=== PATIENT | female | born 2000 | race American Indian/Alaskan Native ===

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

== ENCOUNTER 2020-07-13 23:49 | Inpatient (IN) | payer OTHER ==
[2020-07-14] MEDS ORDERED: Nalbuphine 10 MG/1 ML Vial IVPUSH PRN (01:07)
[2020-07-14] MEDS ORDERED: Misoprostol 25 MCG (1/4 of 100 MCG) Tab VAG PRN (01:07)
[2020-07-14] MEDS ORDERED: Butorphanol 1 MG/ML SDV IVPUSH PRN (01:07)
[2020-07-14] MEDS ORDERED: Carboprost Tromethamine 250 MCG/1 ML Amp IM PRN (01:07)
[2020-07-14] MEDS ORDERED: Tranexamic Acid 1,000 MG in Sodium Chloride 0.9% 100 ML IV PRN (01:07)
[2020-07-14] MEDS ORDERED: Lidocaine 1% 50 ML MDV INJECT PRN (01:07)
[2020-07-14] MEDS ORDERED: Misoprostol 200 MCG Tab PO PRN (01:07)
[2020-07-14] MEDS ORDERED: Sodium Chloride 0.9% 10 ML SDV IV PRN (01:07)
[2020-07-14] MEDS ORDERED: Ondansetron 4 MG/2 ML SDV IVPUSH PRN (01:07)
[2020-07-14] MEDS ORDERED: Terbutaline 1 MG/ML SDV SUBCUT PRN (01:07)
[2020-07-14] MEDS ORDERED: Sodium Chloride 0.9% 2.5 ML Syringe FLUSH PRN (01:07)
[2020-07-14] MEDS ORDERED: Methylergonovine 0.2 MG/1 ML Amp IM PRN ×2 (01:07→18:09)
[2020-07-14] MEDS ORDERED: Water For Irrigation,Sterile 1,000 ML Container IRR PRN (01:07)
[2020-07-14] MEDS ORDERED: Sodium Chloride 0.9% 10 ML Syringe FLUSH PRN (01:07)
[2020-07-14] MEDS ORDERED: Oxytocin/0.9 % Sodium Chloride 30 UNIT/500 ML BAG IV SCH ×2 (01:15)
[2020-07-14] MEDS: Misoprostol 25 MCG (1/4 of 100 MCG) Tab VAG PRN ×2 (02:11→06:17)
[2020-07-14] MEDS: Lactated Ringers 1,000 ML IV SCH ×3 (02:23→11:16)
[2020-07-14] MEDS ORDERED: Ropivacaine 0.2% PF 2 MG/ML 20 ML SDV ONE (10:17)
[2020-07-14] MEDS ORDERED: Bupivicaine/fentaNYL/NS 250 ML ONE (10:17)
--- NOTE | 2020-07-14 10:57 | PCM.PREANE ---
Preanesthetic Assessment - Procedure Proposed Procedure: labor epidural - Anesthesia/Transfusion/Family Hx Anesthesia History: Prior Anesthesia Without Reaction Family History of Anesthesia Reaction: No Transfusion History: No Prior Transfusion(s) - Review of Systems General: No Symptoms Pulmonary: No Symptoms Cardiovascular: No Symptoms Gastrointestinal: No Symptoms Neurological: No Symptoms Other: Reports: None - Physical Assessment Height: 5 ft 10 in Weight: 119.748 kg ASA Class: 2 Mental Status: Alert & Oriented x3 Airway Class: Mallampati = 1 Dentition: Reports: Normal Dentition Thyro-Mental Finger Breadths: 3 Mouth Opening Finger Breadths: 3 ROM/Head Extension: Full Lungs: Clear to Auscultation, Normal Respiratory Effort Cardiovascular: Regular Rate, Regular Rhythm - Lab Values: Laboratory Last Values WBC 8.37 K/uL (4.0-11.0) 07/14/20 01:35 RBC 4.04 M/uL (4.30-5.90) L 07/14/20 01:35 Hgb 13.0 g/dL (12.0-16.0) 07/14/20 01:35 Hct 37.8 % (36.0-46.0) 07/14/20 01:35 MCV 93.6 fL (80.0-98.0) 07/14/20 01:35 MCH 32.2 pg (27.0-32.0) H 07/14/20 01:35 MCHC 34.4 g/dL (31.0-37.0) 07/14/20 01:35 RDW Std Deviation 43.3 fl (28.0-62.0) 07/14/20 01:35 RDW Coeff of Falguni 13 % (11.0-15.0) 07/14/20 01:35 Plt Count 244 K/uL (150-400) 07/14/20 01:35 MPV 11.60 fL (7.40-12.00) 07/14/20 01:35 Nucleated RBC % 0.0 /100WBC 07/14/20 01:35 Nucleated RBCs # 0 K/uL 07/14/20 01:35 Urine Color YELLOW 07/14/20 05:40 Urine Appearance CLEAR 07/14/20 05:40 Urine pH 6.0 (5.0-8.0) 07/14/20 05:40 Ur Specific [place] 1.025 (1.001-1.035) 07/14/20 05:40 Urine Protein NEGATIVE mg/dL (NEGATIVE) 07/14/20 05:40 Urine Glucose (UA) NEGATIVE mg/dL (NEGATIVE) 07/14/20 05:40 Urine Ketones NEGATIVE mg/dL (NEGATIVE) 07/14/20 05:40 Urine Occult Blood NEGATIVE (NEGATIVE) 07/14/20 05:40 Urine Nitrite NEGATIVE (NEGATIVE) 07/14/20 05:40 Urine Bilirubin NEGATIVE (NEGATIVE) 07/14/20 05:40 Urine Urobilinogen 0.2 EU/dL (<2.0) 07/14/20 05:40 Ur Leukocyte Esterase NEGATIVE (NEGATIVE) 07/14/20 05:40 Blood Type O POSITIVE 07/14/20 01:35 Antibody Screen NEGATIVE 07/14/20 01:35 - Allergies Allergies/Adverse Reactions: Allergies Allergy/AdvReac Type Severity Reaction Status Date / Time No Known Allergies Allergy Verified 07/14/20 01:02 - Blood Blood Available: Yes Product(s) Available: PRBC - Anesthesia Plan Pre-Op Medication Ordered: None - Acknowledgements Anesthesia Type Planned: Epidural Pt an Appropriate Candidate for the Planned Anesthesia: Yes Alternatives and Risks of Anesthesia Discussed w Pt/Guardian: Yes Pt/Guardian Understands and Agrees with Anesthesia Plan: Yes PreAnesthesia Questionnaire HEENT History: Reports: None Cardiovascular History: Reports: None Respiratory History: Reports: None Gastrointestinal History: Reports: Chronic Constipation, GERD Genitourinary History: Reports: None 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: Musculoskeletal History: Reports: None Neurological History: Reports: Migraines Psychiatric History: Reports: Anxiety, Depression, PTSD, Suicide Attempt Endocrine/Metabolic History: Reports: Obesity/BMI 30+ Hematologic History: Reports: None Immunologic History: Reports: None Oncologic (Cancer) History: Reports: None Dermatologic History: Reports: None - Infectious Disease History Infectious Disease History: Reports: None - Past Surgical History HEENT Surgical History: Reports: Adenoidectomy, Oral Surgery, Tonsillectomy - HOME MEDS Home Medications: Home Meds Pnv No.95/Ferrous Fum/Folic AC [ Tablet] 1 tab PO DAILY 10/28/17 [History] - CURRENT (IN HOUSE) MEDS Current Meds: Current Medications Butorphanol Tartrate (Stadol) 1 mg IVPUSH Q1H PRN PRN Reason: Pain Carboprost Tromethamine (Hemabate Ds) 250 mcg IM ASDIRECTED PRN PRN Reason: Post Hemorrhage Oxytocin/Sodium Chloride (Oxytocin 30 Unit/500 Ml-Ns) 30 unit in 500 mls @ 999 mls/hr IV TITRATE CORBIN Tranexamic Acid 1,000 mg/ (Sodium Chloride) 110 mls @ 660 mls/hr IV ONETIME PRN PRN Reason: Bleeding Oxytocin/Sodium Chloride (Oxytocin 30 Unit/500 Ml-Ns) 30 unit in 500 mls @ 2 mls/hr IV TITRATE CORBIN; Protocol Lactated Ringer's (Ringers, Lactated) 1,000 mls @ 150 mls/hr IV ASDIRECTED CORBIN Last Admin: 07/14/20 02:23 Dose: 150 mls/hr Documented by: Lidocaine HCl (Xylocaine 1%) 50 ml INJECT ONETIME PRN PRN Reason: Laceration repair Methylergonovine Maleate (Methergine) 0.2 mg IM ASDIRECTED PRN PRN Reason: Post Hemorrhage Misoprostol (Cytotec) 200 mcg PO ONETIME PRN PRN Reason: Post Hemorrhage Misoprostol (Cytotec) 25 mcg VAG ONETIME PRN PRN Reason: Cervical Ripening Misoprostol (Cytotec) 25 mcg VAG Q4H PRN PRN Reason: Cervical Ripening Last Admin: 07/14/20 06:17 Dose: 25 mcg Documented by: Nalbuphine HCl (Nubain) 10 mg IVPUSH Q1H PRN PRN Reason: Pain (severe 7-10) Ondansetron HCl (Zofran) 4 mg IVPUSH Q4H PRN PRN Reason: Nausea/Vomiting Sodium Chloride (Saline Flush) 10 ml FLUSH ASDIRECTED PRN PRN Reason: Keep Vein Open Sodium Chloride (Saline Flush) 2.5 ml FLUSH ASDIRECTED PRN PRN Reason: Keep Vein Open Sodium Chloride (Normal Saline) 10 ml IV ASDIRECTED PRN PRN Reason: IV Use Sterile Water (Sterile Water For Irrigation) 1,000 ml IRR ASDIRECTED PRN PRN Reason: delivery Terbutaline Sulfate (Brethine) 0.25 mg SUBCUT ASDIRECTED PRN PRN Reason: Tacysystole Discontinued Medications Fentanyl/Bupivacaine HCl (Fentanyl/Bupivacaine/Ns 2 Mcg-0.125% 250 Ml) Confirm Administered Dose 250 mls @ as directed .ROUTE .STK-MED ONE Stop: 07/14/20 10:18 Ropivacaine (Naropin 0.2%) Confirm Administered Dose 20 ml .ROUTE .ST-MED ONE Stop: 07/14/20 10:18
--- NOTE | 2020-07-14 16:58 | PCM.DEL ---
L & D Note - General Info Date of Service: 07/14/20 Mother's Due Date: 07/20/20 - Delivery Note Labor: Induced by ARM, Induced by Oxytocin Cervical Ripening Method: Prostaglandin E2 Delivery Outcome: Livebirth Infant Delivery Method: Spontaneous Vaginal Delivery-Single Delivery Mode: Spontaneous Presentation: Vertex Nuchal Cord: Reduced Prep: Other Anesthesia Type: Epidural Amniotic Fluid Description: Clear Episiotomy Type: None Laceration: None Placenta: Intact, Spontaneous Cord: 3 Vessels Resuscitation Needed: No : Suctioned, Bulb Syringe, Stimulated Score 1 min: 8 Score 5 min: 9 - General Info Date of Service: 07/14/20 Functional Status: Reports: Pain Controlled - Review of Systems General: Reports: No Symptoms HEENT: Reports: No Symptoms Pulmonary: Reports: No Symptoms Cardiovascular: Reports: No Symptoms Gastrointestinal: Reports: No Symptoms Genitourinary: Reports: No Symptoms Musculoskeletal: Reports: No Symptoms Skin: Reports: No Symptoms Neurological: Reports: No Symptoms Psychiatric: Reports: No Symptoms - Patient Data Weight - Most Recent: 264 lb Lab Results Last 24 Hours: Laboratory Results - last 24 hr 07/14/20 07/14/20 07/14/20 Range/Units 01:35 01:35 05:40 WBC 8.37 (4.0-11.0) K/uL RBC 4.04 L (4.30-5.90) M/uL Hgb 13.0 (12.0-16.0) g/dL Hct 37.8 (36.0-46.0) % MCV 93.6 (80.0-98.0) fL MCH 32.2 H (27.0-32.0) pg MCHC 34.4 (31.0-37.0) g/dL RDW Std Deviation 43.3 (28.0-62.0) fl RDW Coeff of Falguni 13 (11.0-15.0) % Plt Count 244 (150-400) K/uL MPV 11.60 (7.40-12.00) fL Nucleated RBC % 0.0 /100WBC Nucleated RBCs # 0 K/uL Urine Color YELLOW Urine Appearance CLEAR Urine pH 6.0 (5.0-8.0) Ur Specific [place] 1.025 (1.001-1.035) Urine Protein NEGATIVE (NEGATIVE) mg/dL Urine Glucose (UA) NEGATIVE (NEGATIVE) mg/dL Urine Ketones NEGATIVE (NEGATIVE) mg/dL Urine Occult Blood NEGATIVE (NEGATIVE) Urine Nitrite NEGATIVE (NEGATIVE) Urine Bilirubin NEGATIVE (NEGATIVE) Urine Urobilinogen 0.2 (<2.0) EU/dL Ur Leukocyte Esterase NEGATIVE (NEGATIVE) Blood Type O POSITIVE Antibody Screen NEGATIVE Med Orders - Current: Current Medications Butorphanol Tartrate (Stadol) 1 mg IVPUSH Q1H PRN PRN Reason: Pain Carboprost Tromethamine (Hemabate Ds) 250 mcg IM ASDIRECTED PRN PRN Reason: Post Hemorrhage Oxytocin/Sodium Chloride (Oxytocin 30 Unit/500 Ml-Ns) 30 unit in 500 mls @ 999 mls/hr IV TITRATE CORBIN Tranexamic Acid 1,000 mg/ (Sodium Chloride) 110 mls @ 660 mls/hr IV ONETIME PRN PRN Reason: Bleeding Oxytocin/Sodium Chloride (Oxytocin 30 Unit/500 Ml-Ns) 30 unit in 500 mls @ 2 mls/hr IV TITRATE CORBIN; Protocol Last Titration: 07/14/20 15:32 Dose: 4 munits/min, 4 mls/hr Documented by: Lactated Ringer's (Ringers, Lactated) 1,000 mls @ 150 mls/hr IV ASDIRECTED CORBIN Last Infusion: 07/14/20 11:40 Dose: 999 mls/hr Documented by: Lidocaine HCl (Xylocaine 1%) 50 ml INJECT ONETIME PRN PRN Reason: Laceration repair Methylergonovine Maleate (Methergine) 0.2 mg IM ASDIRECTED PRN PRN Reason: Post Hemorrhage Misoprostol (Cytotec) 200 mcg PO ONETIME PRN PRN Reason: Post Hemorrhage Misoprostol (Cytotec) 25 mcg VAG ONETIME PRN PRN Reason: Cervical Ripening Misoprostol (Cytotec) 25 mcg VAG Q4H PRN PRN Reason: Cervical Ripening Last Admin: 07/14/20 06:17 Dose: 25 mcg Documented by: Nalbuphine HCl (Nubain) 10 mg IVPUSH Q1H PRN PRN Reason: Pain (severe 7-10) Ondansetron HCl (Zofran) 4 mg IVPUSH Q4H PRN PRN Reason: Nausea/Vomiting Sodium Chloride (Saline Flush) 10 ml FLUSH ASDIRECTED PRN PRN Reason: Keep Vein Open Sodium Chloride (Saline Flush) 2.5 ml FLUSH ASDIRECTED PRN PRN Reason: Keep Vein Open Sodium Chloride (Normal Saline) 10 ml IV ASDIRECTED PRN PRN Reason: IV Use Sterile Water (Sterile Water For Irrigation) 1,000 ml IRR ASDIRECTED PRN PRN Reason: delivery Terbutaline Sulfate (Brethine) 0.25 mg SUBCUT ASDIRECTED PRN PRN Reason: Tacysystole Discontinued Medications Fentanyl/Bupivacaine HCl (Fentanyl/Bupivacaine/Ns 2 Mcg-0.125% 250 Ml) Confirm Administered Dose 250 mls @ as directed .ROUTE .STK-MED ONE Stop: 07/14/20 10:18 Ropivacaine (Naropin 0.2%) Confirm Administered Dose 20 ml .ROUTE .STK-MED ONE Stop: 07/14/20 10:18 - Exam General: Alert, Oriented HEENT: Pupils Equal, EOMI Neck: Supple Lungs: Clear to Auscultation, Normal Respiratory Effort Cardiovascular: Regular Rate, Regular Rhythm GI/Abdominal Exam: Soft, No Distention (Female) Exam: Vaginal Bleeding - Problem List & Annotations (1) Vaginal delivery SNOMED Code(s): 635039655 Code(s): O80 - ENCOUNTER FOR FULL-TERM UNCOMPLICATED DELIVERY Status: Acute Current Visit: Yes Onset Date: ~07/14/20 - Problem List Review Problem List Initiated/Reviewed/Updated: Yes - Assessment Assessment:: 20 year old at 39+1 (MIKE 07/20/20 LMP c/w 1st trimester u/s) delivered via a viable male infant apgars 8 & 9. - Plan Plan:: Routine pp cares * O+, rubella immune, GBS negative * PO pain medication PRN * Regular diet as tolerated * , nursing assistance as needed
[2020-07-14] MEDS ORDERED: Acetaminophen 500 MG Tab PO PRN (18:09)
[2020-07-14] MEDS ORDERED: oxyCODONE 5 MG Tab PO PRN (18:09)
[2020-07-14] MEDS ORDERED: Docusate Sodium 100 MG Cap PO PRN (18:09)
[2020-07-14] MEDS ORDERED: Ibuprofen 400 MG Tab PO PRN (18:09)
[2020-07-14] MEDS ORDERED: Bisacodyl 10 MG Supp RECTAL PRN (18:09)
[2020-07-14] MEDS ORDERED: Witch Hazel Medicated Pads 40/Jar TOP PRN (18:09)
[2020-07-14] MEDS ORDERED: Lanolin 100% Cream 7 GM Tube TOP PRN (18:09)
[2020-07-14] MEDS ORDERED: Benzocaine/Menthol 20%-0.5% Spray 78 GM Cannister TOP PRN (18:09)
[2020-07-14] MEDS: Ibuprofen 800 MG Tab PO PRN (21:18)
[2020-07-14] MEDS: Acetaminophen 500 MG Tab PO PRN (21:19)
--- NOTE | 2020-07-15 02:18 | OR ---
SURGEON: Pam Salguero M.D. DATE OF PROCEDURE: 07/14/2020 PREOPERATIVE DIAGNOSES: A 39-week intrauterine , lives remote from the hospital. POSTOPERATIVE DIAGNOSES: A 39-week intrauterine , lives remote from the hospital. PROCEDURES: Cytotec and Pitocin induction of labor, artificial rupture of membranes, term spontaneous vaginal delivery. PRIMARY SURGEON: Pam Salguero M.D. CIVIL DRAFTER: Niecy Villatoro, MS4 ANESTHESIA: Epidural. ESTIMATED BLOOD LOSS: Less than 300 mL. FINDINGS: Liveborn male, score of 8 and 9, weight is pending. Placenta spontaneous, Schultze intact with 3 vessels. Perineum intact. COMPLICATIONS: None known. DISPOSITION: Mother and baby are in LDR in good condition. BRIEF HISTORY: This is a 20-year-old female, G2, P1-0-0-1. She presents at 39 weeks' gestation for induction of labor due to living remotely from the hospital. She is known to be group B strep negative. She has had otherwise uncomplicated care. When she presented, she was fingertip and thick. She received 2 doses of Cytotec. She then was 2 cm, 50%, -3 station, cephalic presentation. Artificial rupture of membranes was performed. Clear fluid was noted. She received an epidural for pain control. She did have some variable alternating with early decelerations. She progressed to complete. DESCRIPTION OF PROCEDURE: With the patient in dorsal lithotomy position, the patient pushed over a 30- minute time period to a 5+ station, at which time the head was delivered spontaneously and atraumatically over the perineum with support, with subsequent delivery of the infant's shoulders and body without any difficulty. The was bulb suctioned by nose and mouth, and after 1 minute, the cord was doubly clamped and cut, and the infant was handed to the mother in the presence of the nurse attending delivery. The infant is a liveborn male, score of 8 and 9. The cord blood was collected for cord ABGs as well as routine cord blood sampling. Pitocin was initiated after delivery of the infant to assist with delivery of the placenta, which was delivered spontaneously, Schultze intact, with 3 vessels. Upon inspection of the pelvis and perineum, there were no periurethral, vaginal sidewall, cervical, rectal, or perineal lacerations. EBL was less than 300 mL. There were no known complications. Final sponge and needle and instrument counts were correct. ITALIA KING /[id number]
--- NOTE | 2020-07-15 07:50 | PCM.PNPP ---
- General Info Date of Service: 07/15/20 Subjective Update: Patient doing well this am. Feeling sore, controlled with PO pain meds. Ambulating/voiding appropriately. going well. Functional Status: Reports: Pain Controlled - Review of Systems General: Reports: No Symptoms HEENT: Reports: No Symptoms Pulmonary: Reports: No Symptoms Cardiovascular: Reports: No Symptoms Gastrointestinal: Reports: No Symptoms Genitourinary: Reports: No Symptoms Musculoskeletal: Reports: No Symptoms Skin: Reports: No Symptoms Neurological: Reports: No Symptoms Psychiatric: Reports: No Symptoms - General Info Date of Service: 07/15/20 - Patient Data Vital Signs - Most Recent: Last Vital Signs Temp 96.7 F L 07/15/20 04:40 Pulse 66 07/15/20 04:40 Resp 20 07/15/20 04:40 BP 108/53 L 07/14/20 20:00 Pulse Ox 97 07/15/20 04:40 Weight - Most Recent: 264 lb Lab Results - Last 24 Hours: Laboratory Results - last 24 hr 07/14/20 07/15/20 Range/Units 16:41 05:45 Hgb 12.2 (12.0-16.0) g/dL Hct 36.1 (36.0-46.0) % Cord ABG pH 7.258 (7.18-7.38) Cord ABG Base Excess -5 (-10--2) Cord VBG pH 7.380 (7.25-7.45) Cord VBG Base Excess -5 (-10--2) Med Orders - Current: Current Medications Acetaminophen (Tylenol Extra Strength) 500 mg PO Q4H PRN PRN Reason: Pain Acetaminophen (Tylenol Extra Strength) 1,000 mg PO Q4H PRN PRN Reason: Pain Last Admin: 07/14/20 21:19 Dose: 1,000 mg Documented by: Benzocaine/Menthol (Dermoplast Pain Relief 20%-0.5% [place]) 78 gm TOP ASDIRECTED PRN PRN Reason: Perineal Comfort Measure Bisacodyl (Dulcolax) 10 mg RECTAL ONETIME PRN PRN Reason: Constipation Docusate Sodium (Colace) 100 mg PO BID PRN PRN Reason: Constipation Last Admin: 07/14/20 21:18 Dose: 100 mg Documented by: Emollient Ointment (Lansinoh Hpa) 0 gm TOP ASDIRECTED PRN PRN Reason: Sore Nipples Ibuprofen (Motrin) 400 mg PO Q4H PRN PRN Reason: Pain Ibuprofen (Motrin) 800 mg PO Q6H PRN PRN Reason: Pain Last Admin: 07/14/20 21:18 Dose: 800 mg Documented by: Methylergonovine Maleate (Methergine) 0.2 mg IM ONETIME PRN PRN Reason: Excessive Vaginal Bleeding Oxycodone HCl (Oxycodone) 5 mg PO Q2H PRN PRN Reason: Pain Witch Sara (Tucks) 1 pad TOP ASDIRECTED PRN PRN Reason: comfort care Discontinued Medications Butorphanol Tartrate (Stadol) 1 mg IVPUSH Q1H PRN PRN Reason: Pain Carboprost Tromethamine (Hemabate Ds) 250 mcg IM ASDIRECTED PRN PRN Reason: Post Hemorrhage Oxytocin/Sodium Chloride (Oxytocin 30 Unit/500 Ml-Ns) 30 unit in 500 mls @ 999 mls/hr IV TITRATE CORBIN Tranexamic Acid 1,000 mg/ (Sodium Chloride) 110 mls @ 660 mls/hr IV ONETIME PRN PRN Reason: Bleeding Oxytocin/Sodium Chloride (Oxytocin 30 Unit/500 Ml-Ns) 30 unit in 500 mls @ 2 mls/hr IV TITRATE CORBIN; Protocol Last Titration: 07/14/20 15:32 Dose: 4 munits/min, 4 mls/hr Documented by: Lactated Ringer's (Ringers, Lactated) 1,000 mls @ 150 mls/hr IV ASDIRECTED CORBIN Last Infusion: 07/14/20 11:40 Dose: 999 mls/hr Documented by: Fentanyl/Bupivacaine HCl (Fentanyl/Bupivacaine/Ns 2 Mcg-0.125% 250 Ml) Confirm Administered Dose 250 mls @ as directed .ROUTE .STK-MED ONE Stop: 07/14/20 10:18 Lidocaine HCl (Xylocaine 1%) 50 ml INJECT ONETIME PRN PRN Reason: Laceration repair Methylergonovine Maleate (Methergine) 0.2 mg IM ASDIRECTED PRN PRN Reason: Post Hemorrhage Misoprostol (Cytotec) 200 mcg PO ONETIME PRN PRN Reason: Post Hemorrhage Misoprostol (Cytotec) 25 mcg VAG ONETIME PRN PRN Reason: Cervical Ripening Misoprostol (Cytotec) 25 mcg VAG Q4H PRN PRN Reason: Cervical Ripening Last Admin: 07/14/20 06:17 Dose: 25 mcg Documented by: Nalbuphine HCl (Nubain) 10 mg IVPUSH Q1H PRN PRN Reason: Pain (severe 7-10) Ondansetron HCl (Zofran) 4 mg IVPUSH Q4H PRN PRN Reason: Nausea/Vomiting Ropivacaine (Naropin 0.2%) Confirm Administered Dose 20 ml .ROUTE .[employer]-MED ONE Stop: 07/14/20 10:18 Sodium Chloride (Saline Flush) 10 ml FLUSH ASDIRECTED PRN PRN Reason: Keep Vein Open Sodium Chloride (Saline Flush) 2.5 ml FLUSH ASDIRECTED PRN PRN Reason: Keep Vein Open Sodium Chloride (Normal Saline) 10 ml IV ASDIRECTED PRN PRN Reason: IV Use Sterile Water (Sterile Water For Irrigation) 1,000 ml IRR ASDIRECTED PRN PRN Reason: delivery Terbutaline Sulfate (Brethine) 0.25 mg SUBCUT ASDIRECTED PRN PRN Reason: Tacysystole - Infant Interaction Infant Disposition, : to Nursery Interaction: Not Interacting ( getting a bath) Infant Feeding: Breastfed Infant; Nursed Well Support Person: Significant Other - Recovery Exam Fundal Tone: Firm Fundal Level: 2 Fingerbreadths Below Umbilicus Fundal Placement: Midline Lochia Amount: Small Lochia Color: Rubra/Red Perineum Description: Intact, Minimal Bruising/Swelling Episiotomy/Laceration: None Bladder Status: Voiding Urinary Elimination: Voided - Exam General: Alert, Oriented HEENT: Pupils Equal, EOMI Neck: Supple Lungs: Clear to Auscultation, Normal Respiratory Effort Cardiovascular: Regular Rate, Regular Rhythm GI/Abdominal Exam: Soft, No Distention, No Mass, Tender (appropriate) Extremities: Normal Inspection, Normal Range of Motion, Non-Tender Skin: Warm, Dry, Intact Neurological: No New Focal Deficit Psy/Mental Status: Alert, Normal Affect, Normal Mood - Problem List & Annotations (1) Vaginal delivery SNOMED Code(s): 402119663 Code(s): O80 - ENCOUNTER FOR FULL-TERM UNCOMPLICATED DELIVERY Status: Acute Current Visit: Yes Onset Date: ~07/14/20 - Problem List Review Problem List Initiated/Reviewed/Updated: Yes - Assessment Assessment:: 20 year old PPD1 - Plan Plan:: 20 year old PPD#1 s/p . Labs and vitals stable. Routine pp cares * O+, rubella immune, GBS negative * PO pain medication PRN * Regular diet as tolerated * , nursing assistance as needed Dispo: stable. Anticipate discharge later today pending mom/ status.
[2020-07-15] MEDS: Acetaminophen 500 MG Tab PO PRN ×2 (08:21→14:32)
[2020-07-15] MEDS: Ibuprofen 800 MG Tab PO PRN ×2 (08:23→14:31)
--- NOTE | 2020-07-15 14:22 | PCM48HPAN ---
Post Anesthesia Note - EVALUATION WITHIN 48HRS OF ANESTHETIC Vital Signs in Normal Range: Yes Patient Participated in Evaluation: Yes Respiratory Function Stable: Yes Airway Patent: Yes Cardiovascular Function Stable: Yes Hydration Status Stable: Yes Pain Control Satisfactory: Yes Nausea and Vomiting Control Satisfactory: Yes (Taking PO well) Mental Status Recovered: Yes Vital Signs: Last Vital Signs Temp 36.1 C 07/15/20 08:10 Pulse 74 07/15/20 08:10 Resp 16 07/15/20 08:10 BP 122/65 07/15/20 08:10 Pulse Ox 97 07/15/20 08:10 - COMMENTS/OBSERVATIONS Free Text/Narrative:: Ambulating well without assist, reports full return of strength and sensation to BLE.
== END 2020-07-15 19:42 | disposition home or self-care (01) | DRG 807 ==
LOC: MW.OBCHECK 23:49 → MW.OB 23:50 → MW.OBCHECK 07-14 → MW.OB 07-14
PROVIDERS: ADMIT Obstetrics & Gynecology; ATTEND Obstetrics & Gynecology
PROC: 10E0XZZ Delivery of Products of Conception, External Approach (ICD-10-PCS; principal; 2020-07-14)
PROC: 10907ZC Drainage of Amniotic Fluid, Therapeutic from Products of Conception, Via Natural or Artificial Opening (ICD-10-PCS; 2020-07-14)
PROC: 3E0R3BZ Introduction of Anesthetic Agent into Spinal Canal, Percutaneous Approach (ICD-10-PCS; 2020-07-14)
PROC: 00HU33Z Insertion of Infusion Device into Spinal Canal, Percutaneous Approach (ICD-10-PCS; 2020-07-14)
DX: O80 Encounter for full-term uncomplicated delivery (principal); Z37.0 Single live birth; Z3A.39 39 weeks gestation of pregnancy
CPT/HCPCS: 36415; 51702; 59025; 81003; 82803; 85014; 85018; 85027; 86592; 86850; 86900; 86901; A9270-GY; J2590; J2795; J3010; J7120